=== PATIENT | male | born 1995 | race Two or more races ===

== ENCOUNTER 2023-08-26 20:42 | Observation (INO) | payer SELFPAY ==
[2023-08-26] MEDS ORDERED: Mineral Oil ENEMA ONE (22:41)
[2023-08-27] MEDS ORDERED: Mineral Oil ENEMA ONE (00:55)
[2023-08-27 03:18] LABS: #Basophils 0.05 10x3/uL (0.0-0.2); #Eosinphils 0.15 10x3/uL (0.0-0.5); #Monocytes 0.62 10x3/uL (0.0-1.1); #Neutrophils 3.89 10x3/uL (1.5-8.4); %Basophils 0.6 % (0.0-2.0); %Eosinophils 1.9 % (0.0-6.0); %Lymphocytes 40.9 % (18.0-47.0); %Monocytes 7.8 % (0.0-10.0); %Neutrophils 48.5 % (40.0-75.0); Hematocrit 44.7 % (38.8-50.0); Hemoglobin 16.1 g/dL (13.5-17.5); Mean Corpuscular Volume 91.6 fL (81.2-95.1); Mean Platelet Volume 9.3 fL (7.4-10.4); Platelet Count 285 10x3/uL (150-450); RBC Distribution Width 11.9 % (11.5-14.5); Red Blood Cell (RBC) Count 4.88 10x6/uL (4.32-5.72)
[2023-08-27 03:26] LABS: Anion Gap 14 mmol/L (10-20); BUN (Urea Nitrogen) 10 mg/dL (8.9-20.6); Calc. Creatinine Clearance 0 mL/min (70-130); Calcium 8.9 mg/dL (7.8-10.44); Carbon Dioxide 24 mmol/L (22-29); Chloride 104 mmol/L (98-107); Estimated GFR 122; Glucose 97 mg/dL (70-105); Potassium 3.6 mmol/L (3.5-5.1); Sodium 138 mmol/L (136-145)
[2023-08-27 04:32] VITALS: BMI 24.6
[2023-08-27] MEDS: Lidocaine 2% 6 ML (Jelly) SYR TOP SCH (05:50)
[2023-08-27] MEDS: Lidocaine-Prilocaine 2.5% Cream 5 GM TUBE TOP SCH (09:00)
[2023-08-27] MEDS: Docusate 100 MG CAP PO SCH (09:00)
[2023-08-27] MEDS: Polyethylene Glycol 3350 17 GM Packet PO SCH (09:00)
[2023-08-27] MEDS: Famotidine 20 MG TAB PO SCH (09:00)
[2023-08-27] MEDS: Lactated Ringer's 500 ML IV SCH (09:39)
[2023-08-27] MEDS: Lactated Ringer's 1,000 ML IV SCH ×2 (10:00→12:15)
[2023-08-27] MEDS: Morphine 2 MG/ML VIAL SLOW IVP SCH (10:19)
[2023-08-27] MEDS ORDERED: Morphine 2 MG/ML VIAL SLOW IVP PRN (11:25)
[2023-08-27] MEDS ORDERED: traMADol HCl 50 MG TAB PO PRN (11:25)
[2023-08-27] MEDS: GoLYTELY 4,000 ml Bottle PO SCH (12:18)
[2023-08-27] MEDS: Acetaminophen 325 MG TAB PO SCH (12:19)
[2023-08-27] MEDS: Ketorolac Tromethamine 30 MG (1 mL) VIAL IVP SCH (15:46)
[2023-08-27 22:35] VITALS: BP 124/79; TEMP 97.7
== END 2023-08-27 22:00 | disposition home or self-care (01) ==
LOC: CSHERS 20:42 → CSHERHOLD 08-27 03:44 → CSHTELE 08-27 04:25
PROVIDERS: ADMIT Hospitalist; ATTEND Family Medicine
DX: K59.00 Constipation, unspecified (principal); K60.2 Anal fissure, unspecified
CPT/HCPCS: 74018; 80048; 85025; 96374; 96375; 99284; G0378; J1885; J2272; J7120